=== PATIENT | female | born 1995 | race Hispanic/Latino ===

== ENCOUNTER 2025-02-28 19:26 | Emergency (ER) | payer OTHER ==
--- NOTE | 2025-02-28 21:06 | RAD REPORT ---
EXAMINATION: 1St Trimest Single 1St Fetus COMPARISON: None. HISTORY: [facility] MAIN ABD CRAMPING, Bed Name: 16 TECHNIQUE: Real-time ultrasound was performed through the pelvis. A transvaginal scan was performed t o better visualize the intrauterine contents and adnexa. FINDINGS: There is a single living intrauterine . There is no visible subchorionic hemorrhage. Both ovaries are not well-visualized. No suspicious abnormalities in the adnexal regions. There is no free fluid in the cul-de-sac. Measurements and Calculations: [place] rump length 27.5 millimeter, consistent with a sonographic age of 9 weeks, 4 days. The patient 's LMP dates are 12/23/2024. Estimated due date by ultrasound 09/29/2025. heart rate: 175 BPM. IMPRESSION: Single living intrauterine , with a composite sonographic age of 9 weeks, 4 days.
[2025-02-28] MEDS ORDERED: ACETAMINOPHEN 500 MG TAB ONE (21:07)
[2025-02-28 21:15] LABS: Absolute Lymphocytes (CBC) 3.2 K/uL (0.7-4.9); Hematocrit 35.6 % (36.0-45.0); Hemoglobin 11.9 g/dL (12.0-15.0); MCH 27.8 pg (27.0-35.0); MCHC 33.5 g/dL (32.0-36.0); MCV 83.0 fL (80-100); MPV 7.6 fL (7.6-11.3); Nucleated RBC Absolute Count 0.0 (0-0); Nucleated Red Blood Cells % 0.0 % (0-0); RBC Red Blood Cell Count 4.29 M/uL (3.86-4.86); White Blood Count 13.70 thou/uL (4.3-10.9)
[2025-02-28 21:44] LABS: Urine Culture Reflex Order REFLEXED; Urine Microscopic Reflex YN ORDER UMIC
[2025-02-28 22:05] LABS: Anion Gap 11.9 mEq/L (5.0-15.0); BUN Blood Urea Nitrogen 7.0 mg/dL (7-18); Glucose Level 96.0 mg/dL (74-106)
[2025-02-28 22:19] LABS: Potassium 3.9 mEq/L (3.5-5.1)
[2025-02-28] MEDS ORDERED: AZITHROMYCIN 250 MG TAB ONE (23:21)
[2025-02-28] MEDS ORDERED: CEFTRIAXONE 1000 MG/VIAL ONE (23:21)
--- NOTE | 2025-02-28 23:55 | ER ---
Nurse's Notes [facility] Name: Lizette Segovia Age: 29 yrs Sex: Female : 1995 Arrival Date: 02/28/2025 Time: 19:26 Bed [id number] Private MD: Diagnosis: Infections of other parts of urinary tract in , first trimester;Other specified related conditions, first trimester;Lower abdominal pain, unspecified;Encounter for screening for infections with a predominantly sexual mode of transmission Presentation: 02/28 19:42 Chief complaint: Patient states: lower abdominal pain, burning with urination, urinary me1 frequency and vaginal discharge (sometimes white, sometimes a greenish color) that started on Tuesday. Patient is 9 weeks 4 days . LMP: 12/23/24. Coronavirus screen: Vaccine status: Patient reports being unvaccinated. Ebola Screen: No symptoms or risks identified at this time. Initial Sepsis Screen: Does the patient meet any 2 criteria? No. Patient's initial sepsis screen is negative. Does the patient have a suspected source of infection? No. Patient's initial sepsis screen is negative. Risk Assessment: Do you want to hurt yourself or someone else? Patient reports no desire to harm self or others. Onset of symptoms was February 25, 2025. 19:42 Method Of Arrival: Amb[place] [facility] [place] 19:42 Acuity: YVONNE 3 me1 Triage Assessment: 03/01 00:39 General: Appears in no apparent distress. Behavior is calm, cooperative. Pain: Pain kd4 currently is 3 out of 10 on a pain scale. Neuro: No deficits noted. Cardiovascular: Denies chest pain. Respiratory: No deficits noted. : Reports burning with urination, discharge, green, white, yellow. 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 - Infectious Disease History:: Denies. - Social history:: Smoking status: Patient denies any tobacco usage or history of. Screenin:32 [facility] ED Fall Risk Assessment (Adult) History of falling in the last 3 months, kd4 including since admission No falls in past 3 months (0 pts) Confusion or Disorientation No (0 pts) Intoxicated or Sedated No (0 pts) Impaired Gait No (0 pts) Mobility Assist Device Used No (0 pt) Altered Elimination No (0 pt) Score/Fall Risk Level 0 - 2 = Low Risk Oriented to surroundings, Maintained a safe environment. Abuse screen: Denies threats or abuse. Nutritional screening: No deficits noted. Tuberculosis screening: No symptoms or risk factors identified. Assessment: 21:31 Pain: Complains of pain in lower abdomial Pain currently is 7 out of 10 on a pain kd4 scale. GI: Patient currently denies nausea, vomiting. : Reports burning with urination, discharge, from vagina that is green, white, yellow. 03/01 00:42 GI: Bowel sounds present X 4 quads. Abd is soft and non tender X 4 quads. kd4 Vital Signs: 02/28 19:42 BP 142 / 95; Pulse 85; Resp 17; Temp 98.4; Pulse Ox 99% ; Weight 77.11 kg; Height 5 ft. me1 5 in. ; Pain 8/10; 03/01 00:42 BP 107 / 64; Pulse 63; Resp 18; Temp 97.8(O); Pulse Ox 99% on R/A; Pain 3/10; kd4 02/28 19:42 Body Mass Index 28.29 (77.11 kg, 165.1 cm) me1 02/28 19:42 Pain Scale: Adult me1 03/01 00:42 Pain Scale: Adult kd4 [place] Coma Score: 00:42 Eye Response: spontaneous(4). Motor Response: obeys commands(6). Verbal Response: kd4 oriented(5). Total: 15. ED Course: 02/28 19:30 Patient arrived in ED. gm2 19:35 Esteban Sheldon PA-C is PHCP. cp 19:35 Maksim Arroyo MD is Attending Physician. cp 19:47 Triage completed. me1 19:47 Arm band placed on Patient placed in an exam room. me1 19:54 Elmo Duron, JOSE RAFAEL is Primary Nurse. kd4 21:00 1St Trimest Single 1St Fetus In Process Unspecified. EDMS 21:32 Inserted saline lock: 20 gauge in left upper arm, using aseptic technique. kd4 03/01 00:40 Assisted provider with: vaginal exam by PA with yvon Moise RN. IV discontinued. kd4 00:42 Patient has correct armband on for positive identification. Provided Education on: d/c kd4 instruction. Administered Medications: 02/28 21:10 Drug: Acetaminophen PO 1000 mg PO once Route: PO; kd4 03/01 00:44 Follow up: Response: No adverse reaction kd4 02/28 23:39 Drug: Rocephin IV 1 grams IV at calculated rate once; Given slow IV push per pharmacy kd4 instructions Route: IV; Rate: calculated rate; Site: left upper arm; 03/01 00:44 Follow up: IV Status: Completed infusion kd4 02/28 23:39 Drug: AZITHromycin PO 1 grams PO once Route: PO; kd4 03/01 00:44 Follow up: Response: No adverse reaction kd4 Medication: 00:42 VIS not applicable for this client. kd4 Outcome: 02/28 23:55 Discharge ordered by . linda 03/01 00:40 Discharged to home ambulatory, kd4 Condition: good Discharge instructions given to patient, Instructed on discharge instructions, follow up and referral plans. medication usage, Demonstrated understanding of instructions, follow-up care, medications, Prescriptions given X 1, 00:49 Patient left the ED. kd4 Signatures: Dispatcher [employer] EDCT Esteban Sheldon PA-C PA-C cp Eddleman, Michelle, RN RN me1 Delmis Machado 2 Elmo Duron RN RN kd4
--- NOTE | 2025-02-28 23:55 | EDPHYS ---
Physician Documentation [facility] Name: Lizette Segovia Age: 29 yrs Sex: Female : 1995 Arrival Date: 02/28/2025 Time: 19:26 Bed IW10 Private MD: ED Physician Maksim Arroyo HPI: 02/28 20:15 This 29 yrs old Female presents to ER via Ambulatory with complaints of cp Abdominal Pain. 20:15 The patient presents with abdominal pain. cp 20:15 Onset: The symptoms/episode began/occurred 3 day(s) ago. cp 20:15 The symptoms do not radiate. Associated signs and symptoms: Pertinent positives: cp vaginal discharge, Pertinent negatives: fever, vomiting, vaginal bleeding. The symptoms are described as waxing/waning. 20:15 Patient is a G3P) with 2 previous miscarriages. Patient reports she is approximately 9 cp weeks . 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 - Infectious Disease History:: Denies. - Social history:: Smoking status: Patient denies any tobacco usage or history of. ROS: 20:20 Constitutional: Negative for body aches, chills, fever, poor PO intake, cp 20:20 Eyes: Negative for injury, pain, redness, and discharge, cp 20:20 Cardiovascular: Negative for chest pain, palpitations, 20:20 Respiratory: Negative for cough, shortness of breath, wheezing, 20:20 Abdomen/GI: Positive for abdominal pain, nausea, Negative for vomiting, diarrhea, constipation, 20:20 Back: Negative for pain at rest, pain with movement, 20:20 : Positive for vaginal discharge, Negative for vaginal bleeding, 20:20 Neuro: Negative for altered mental status, dizziness, headache, weakness, cp 20:20 All other systems are negative, cp Exam: 20:25 Constitutional: The patient appears in no acute distress, alert, awake, non-toxic, well cp developed, well nourished, 20:25 Head/Face: Normocephalic, atraumatic. cp 20:25 Eyes: Periorbital structures: appear normal, Conjunctiva: normal, no exudate, no injection, Sclera: no appreciated abnormality, Lids and lashes: appear normal, bilaterally, 20:25 ENT: External ear(s): are unremarkable, Nose: is normal, Mouth: Lips: moist, Oral mucosa: moist, Posterior pharynx: Airway: no evidence of obstruction, patent, 20:25 Chest/axilla: Inspection: normal, 20:25 Cardiovascular: Rate: normal, Rhythm: regular, 20:25 Respiratory: the patient does not display signs of respiratory distress, Respirations: normal, no use of accessory muscles, no retractions, labored breathing, is not present, Breath sounds: are clear throughout, no decreased breath sounds, no stridor, no wheezing, 20:25 Abdomen/GI: Inspection: abdomen appears normal, Bowel sounds: active, all quadrants, Palpation: soft, in all quadrants, mild abdominal tenderness, in the right lower quadrant and left lower quadrant, rebound tenderness, is not appreciated, involuntary guarding, is not appreciated, 20:25 Back: CVA tenderness, is absent, 23:00 : Pelvic Exam: External exam: is normal, Speculum exam: no bleeding is noted, no cp cervicitis, os that is closed, discharge, off white, the nurse was present for the exam, Sexual behavior: the patient is sexually active, and reports a single partner, 23:00 Skin: no rash present. Vital Signs: 19:42 BP 142 / 95; Pulse 85; Resp 17; Temp 98.4; Pulse Ox 99% ; Weight 77.11 kg; Height 5 ft. me1 5 in. ; Pain 8/10; 03/01 00:42 BP 107 / 64; Pulse 63; Resp 18; Temp 97.8(O); Pulse Ox 99% on R/A; Pain 3/10; kd4 02/28 19:42 Body Mass Index 28.29 (77.11 kg, 165.1 cm) ri1 02/28 19:42 Pain Scale: Adult me1 03/01 00:42 Pain Scale: Adult kd4 [place] Coma Score: 00:42 Eye Response: spontaneous(4). Motor Response: obeys commands(6). Verbal Response: kd4 oriented(5). Total: 15. MDM: 02/28 19:36 Medical Screening Exam initiated cp 21:00 Differential diagnosis: non-specific abd pain, Ovarian Torsion, Pelvic Inflammatory cp Disease, Pyelonephritis, Ureterolithiasis, urinary tract infection, threatened . 23:55 Data reviewed: vital signs, nurses notes, lab test result(s), radiologic studies, cp ultrasound, and as a result, I will discharge patient. 23:55 I considered the following discharge prescriptions or medication management in the emergency department Medications were administered in the Emergency Department. See SEP. 23:55 Counseling: I had a detailed discussion with the patient and/or guardian regarding the historical points, exam findings, and any diagnostic results supporting the discharge/admit diagnosis, lab results, radiology results, the need for outpatient follow up, an OB/Gyne specialist, to return to the emergency department if symptoms worsen or persist or if there are any questions or concerns that arise at home. Response to treatment: and as a result, I will discharge patient. 02/28 20:09 Order name: Abo/rh Typing; Complete Time: 22:33 02/28 20:09 Order name: Basic Metabolic Panel; Complete Time: 22:33 02/28 22:33 Interpretation: Normal except: CL 108. 02/28 20:09 Order name: CBC with Diff; Complete Time: 22:33 02/28 23:04 Interpretation: Normal except: WBC 13.70; HGB 11.9; HCT 35.6; RDW 15.5; NEUT A 9.1. 02/28 20:09 Order name: Test, Urine; Complete Time: 22:33 02/28 23:04 Interpretation: Reviewed. 02/28 20:09 Order name: Wet Prep; Complete Time: 23:23 02/28 23:23 Interpretation: Reviewed. 02/28 20:09 Order name: GC (Arnoldo/Chl) Probe VAGINAL (Do not order if pt is under 13, order Culture instead) 02/28 20:09 Order name: UA Rfx Gerber Cult if indicated; Complete Time: 22:33 02/28 23:04 Interpretation: Normal except: [facility] Extremely Turbid; UPROT TRACE; UUROB 1+; UESTR 500; cp UWBC 10-20; UBACT 20-50; MUCUS 3+. 02/28 21:57 Order name: Urine Culture EDMA 02/28 21:00 Order name: 1St Trimest Single 1St Fetus; Complete Time: 22:33 EDMS 02/28 20:09 Order name: IV Saline Lock; Complete Time: 00:48 cp 02/28 20:09 Order name: Labs collected and sent; Complete Time: 00:48 cp 02/28 20:09 Order name: NPO; Complete Time: 00:48 cp 02/28 20:09 Order name: Pelvic Exam Setup; Complete Time: 00:48 cp 02/28 21:35 Order name: Misc. Order: recollect green top; Complete Time: 21:45 vc1 Administered Medications: 21:10 Drug: Acetaminophen PO 1000 mg PO once Route: PO; [facility] 03/01 00:44 Follow up: Response: No adverse reaction [facility] 02/28 23:39 Drug: Rocephin IV 1 grams IV at calculated rate once; Given slow IV push per pharmacy [facility] instructions Route: IV; Rate: calculated rate; Site: left upper arm; 03/01 00:44 Follow up: IV Status: Completed infusion [facility] 02/28 23:39 Drug: AZITHromycin PO 1 grams PO once Route: PO; [facility] 03/01 00:44 Follow up: Response: No adverse reaction [facility] Disposition Summary: 02/28/25 23:55 Discharge Ordered Notes: Location: Home cp Problem: new cp Symptoms: have improved cp Condition: Stable cp Diagnosis - Infections of other parts of urinary tract in , first trimester cp - Other specified related conditions, first trimester cp - Lower abdominal pain, unspecified cp - Encounter for screening for infections with a predominantly sexual mode of cp transmission Followup: cp - With: Private Physician - When: 5 - 6 days - Reason: Recheck today's complaints Discharge Instructions: - Discharge Summary Sheet cp - Abdominal Pain During cp - and Sexually Transmitted Infections cp - First Trimester of cp - Health Maintenance, Female cp - Preventing Sexually Transmitted Infections, Adult cp Forms: - Medication Reconciliation Form cp - Antibiotic Education cp - Prescription Opioid Use cp - Patient Portal Instructions cp - Leadership Thank You Letter cp Prescriptions: - Macrobid 100 mg Oral Capsule - take 1 capsule ORAL route every 12 hours for 7 days; 14 capsule; Refills: 0, cp Product Selection Permitted Addendum: 03/02/2025 23:57 Co-signature as Attending Physician, Maksim Arroyo MD I agree with the assessment s p4 and plan of care. I reviewed the patient's care provided by the Advanced Practice Provider and agree with the diagnosis and treatment plan. Signatures: Dispatcher [employer] [facility] Esteban Sheldon PA-C PA-C cp Calcote, Vanessa, RN RN vc1 Maksim Arroyo MD MD sp4 Cynthia Godoy RN RN me1 Elmo Duron RN RN kd4 Corrections: (The following items were deleted from the chart) 02/28 21:00 20:09 OB Limited+US.RAD.BRZ ordered. [facility] 03/01 22:09 22:08 : Pelvic Exam: External exam: is normal, Speculum exam: no bleeding is noted, cp no cervicitis, os that is closed, discharge, off white, the nurse was present for the exam, Sexual behavior: the patient is sexually active, and reports a single partner, cp 22: 22:08 Skin: no rash present. cp cp
[2025-03-01 02:58] VITALS: O2SAT 99
[2025-03-01 03:10] VITALS: BP 107/64; TEMP 97.8
[2025-03-04 21:03] LABS: C.trachomatis RNA,TMA Not Detected (Not Detected); N.gonorrhoeae RNA,TMA Not Detected (Not Detected)
== END 2025-03-01 00:49 | disposition home or self-care (01) ==
LOC: ER 19:26
DX: O23.31 Infections of other parts of urinary tract in pregnancy, first trimester (principal); O26.891 Other specified pregnancy related conditions, first trimester; Z3A.09 9 weeks gestation of pregnancy; Z11.3 Encounter for screening for infections with a predominantly sexual mode of transmission
CPT/HCPCS: 96365; 87088; 85025; 81001; 87086; 80048; 36415; 86900; 81025; 86901; 87210; 87590; 87490; 76801; 99284; J0696